=== PATIENT | male | born 1960 | race Caucasian/White ===

== ENCOUNTER 2016-06-07 13:42 | Emergency (ER) | payer OTHER ==
[~2016-06-07 13:42] MED LIST: ALPRAZOLAM0.5 MG PO; ASPIRIN EC325 MG PO; ASPIRIN EC81 MG PO; DESYREL 50 MG T50 MG PO; ECOTRIN81 MG PO; ELIQUIS5 MG PO; HABITROL 14 MG P1 EA TD; IMDUR ER TAB 6060 MG PO; LIPITOR TAB 2020 MG PO; LISINOPRIL10 MG PO; LOPRESSOR50 MG PO; LORTAB 7.5-3251 EACH PO; METOPROLOL TART25 MG PO; NORVASC 5 MG TAB5 MG PO; OXYCODON-ACETA1 EAC1 PO; PROTONIX 40 MG40 M1 PO; RANEXA500 MG PO; SERTRALINE HCL50 MG PO
[2016-06-07 16:08] LABS: HEMOGLOBIN 14.8 gm/dl (14.0-17.5); RED BLOOD COUNT 5.17 M/UL (4.20-5.50)
[2016-06-07 16:24] LABS: BUN/CREATININE RATIO 22 (0-10)
== END 2016-06-08 03:10 | disposition home or self-care (01) ==
LOC: ER1 13:42
PROVIDERS: Physician Assistant
DX: F32.9 Major depressive disorder, single episode, unspecified (principal); I10 Essential (primary) hypertension; E78.5 Hyperlipidemia, unspecified; F41.9 Anxiety disorder, unspecified; F17.210 Nicotine dependence, cigarettes, uncomplicated; Z95.5 Presence of coronary angioplasty implant and graft
CPT/HCPCS: 36415; 71020; 80053; 80307; 81001; 83735; 84443; 85025; 93005; 99282; G0480